=== PATIENT | female | born 1955 | race Two or more races ===

== ENCOUNTER → 2017-10-01 10:46 | Outpatient (CLI) | payer OTHER | END | disposition home or self-care (01) | LOC: LAB 10:46 | DX: D63.1 Anemia in chronic kidney disease (principal); E11.21 Type 2 diabetes mellitus with diabetic nephropathy; I12.9 Hypertensive chronic kidney disease with stage 1 through stage 4 chronic kidney disease, or unspecified chronic kidney disease; E03.1 Congenital hypothyroidism without goiter; N30.00 Acute cystitis without hematuria; M15.0 Primary generalized (osteo)arthritis; E78.4 Other hyperlipidemia ==

== ENCOUNTER 2017-10-01 10:54 | Outpatient (CLI) | payer OTHER | END 2017-10-01 11:09 | disposition home or self-care (01) | LOC: SONOGRAMA 10:54 → MAMO-SONO 11:15 | DX: N30.00 Acute cystitis without hematuria (principal); N20.0 Calculus of kidney ==

== ENCOUNTER 2017-10-03 10:35 | Outpatient (CLI) | payer OTHER | END 2017-10-03 15:52 | disposition home or self-care (01) | LOC: TOM 10:35 | DX: I63.8 Other cerebral infarction (principal); N60.11 Diffuse cystic mastopathy of right breast; N60.12 Diffuse cystic mastopathy of left breast ==

== ENCOUNTER 2019-10-03 12:48 | Outpatient (CLI) | payer OTHER | END 2019-10-03 12:50 | disposition home or self-care (01) | LOC: SONOGRAMA 12:48 → MAMO-SONO 14:00 | PROVIDERS: ATTEND Specialist/Technologist, Other Nephrology | DX: N93.8 Other specified abnormal uterine and vaginal bleeding (principal) ==

== ENCOUNTER 2019-10-23 14:01 | Outpatient (CLI) | payer OTHER | END 2019-10-23 14:15 | disposition home or self-care (01) | LOC: TOM 14:01 | PROVIDERS: ATTEND Specialist/Technologist, Other Nephrology | DX: R10.2 Pelvic and perineal pain (principal); R10.30 Lower abdominal pain, unspecified ==

== ENCOUNTER → 2019-11-28 12:01 | Outpatient (CLI) | payer OTHER | END | disposition home or self-care (01) | LOC: EKG 12:01 | PROVIDERS: ATTEND Obstetrics & Gynecology Gynecologic Oncology | DX: R94.31 Abnormal electrocardiogram [ECG] [EKG] (principal); Z01.810 Encounter for preprocedural cardiovascular examination ==

== ENCOUNTER 2020-01-31 11:41 | Outpatient (CLI) | payer OTHER | END 2020-01-31 11:43 | disposition home or self-care (01) | LOC: SONOGRAMA 11:41 | PROVIDERS: ATTEND Pathology Anatomic Pathology & Clinical Pathology | DX: D11.0 Benign neoplasm of parotid gland (principal) ==

== ENCOUNTER → 2020-09-05 | Outpatient (CLI) | payer OTHER | END | disposition home or self-care (01) | LOC: TOM 08:15 | DX: N85.02 Endometrial intraepithelial neoplasia [EIN] (principal) ==

== ENCOUNTER 2021-02-24 11:14 | Outpatient (CLI) | payer OTHER | END 2021-02-24 11:38 | disposition home or self-care (01) | LOC: RAD 11:14 | PROVIDERS: ATTEND Specialist/Technologist, Other Nephrology | DX: N20.0 Calculus of kidney (principal); R31.1 Benign essential microscopic hematuria ==

== ENCOUNTER → 2023-03-16 | Outpatient (CLI) | payer OTHER | END | disposition home or self-care (01) | LOC: RAD 09:21 | PROVIDERS: ATTEND Specialist/Technologist, Other Nephrology | DX: M13.80 Other specified arthritis, unspecified site (principal); M25.562 Pain in left knee ==

== ENCOUNTER 2023-12-26 11:09 | Outpatient (CLI) | payer OTHER | END 2023-12-26 11:15 | disposition home or self-care (01) | LOC: SONOGRAMA 11:09 | PROVIDERS: ATTEND Otolaryngology | DX: E21.0 Primary hyperparathyroidism (principal) ==

== ENCOUNTER 2023-12-26 13:09 | Outpatient (CLI) | payer OTHER | END 2023-12-26 13:14 | disposition home or self-care (01) | LOC: EKG 13:09 | PROVIDERS: ATTEND Specialist/Technologist, Other Nephrology | DX: N18.1 Chronic kidney disease, stage 1 (principal); I12.9 Hypertensive chronic kidney disease with stage 1 through stage 4 chronic kidney disease, or unspecified chronic kidney disease ==